=== PATIENT | female | born 1995 | race Caucasian/White ===

== ENCOUNTER 2018-02-07 18:54 | Emergency (ER) | payer BC ==
[2018-02-07] MEDS ORDERED: 0.9 % SODIUM CHLORIDE 1,000 ML BAG IV ONE (19:33)
[2018-02-07] MEDS ORDERED: ONDANSETRON HCL IV 4 MG/2 ML VIAL IVP ONE (19:34)
--- NOTE | 2018-02-07 19:34 | Emergency Department Record ---
History of Present Illness - General Chief complaint: Nausea, Vomiting, Diarrhea Stated complaint: VOMITTING, DIARREAH Time Seen by Provider: 02/07/18 19:25 Source: Patient Mode of Arrival: Ambulatory - History of Present Illness Initial comments: Patient states that she began having nausea and vomited around 2100 last evening with diarrhea times 1. She now has vomited more than 5 times, less than 10. She denies fevers, but has chills, and abdominal pain around her umbilicus. She is [id number] 2-3 weeks ago on BCP. Onset/Timin -: Days(s) Description of Vomiting: Watery Radiation: LUQ, RUQ, LLQ, RLQ Severity: Moderate Severity scale (1-10): 6 Quality: Aching, Cramping Consistency: Constant, Intermittent Associated Symptoms: Nausea/vomiting - Related Data Previous Rx's Medication Instructions Recorded Ondansetron [Zofran Odt] 4 mg PO Q8H #7 tab.rapdis 02/07/18 Allergies Allergy/AdvReac Type Severity Reaction Status Date / Time poison anai extract Allergy Severe SWELLING Verified 02/07/18 19:04 (GENERAL) venom-honey bee Allergy Severe SWELLING Verified 02/07/18 19:04 SEASONAL ALLERGIES Allergy Mild CONGESTION Uncoded 02/07/18 19:04 Travel Screening - Travel/Exposure Within Last 30 Days Have you traveled within the last 30 days?: No - Travel/Exposure Within Last Year Have you traveled outside the [place] in the last year?: No - Additonal Travel Details Have you been exposed to anyone with a communicable illness?: No - Travel Symptoms Symptom Screening: None Review of Systems Reviewed: No additional complaints except as noted below Constitutional: Reports: As per HPI. Denies: Chills, Fever, Malaise, Night sweats, Weakness, Weight change Eyes: Reports: As per HPI. Denies: Eye discharge, Eye pain, Photophobia, Vision change ENT: Reports: As per HPI. Denies: Congestion, Dental pain, Ear pain, Epistaxis , Hearing loss, Throat pain Respiratory: Reports: As per HPI. Denies: Cough, Dyspnea, Hemoptysis, Stridor, Wheezes Cardiovascular: Reports: As per HPI. Denies: Arrhythmia, Chest pain, Dyspnea on exertion, Edema, Murmurs, Orthopnea, Palpitations, Paroxysmal nocturnal dyspnea, Rheumatic Fever, Syncope Endocrine: Reports: As per HPI. Denies: Fatigue, Heat or cold intolerance, Polydipsia, Polyuria Gastrointestinal: Reports: As per HPI. Denies: Abdominal pain, Constipation, Diarrhea, Hematemesis, Hematochezia, Melena, Nausea, Vomiting Genitourinary: Reports: As per HPI. Denies: Abnormal menses, Discharge, Dyspareunia, Dysuria, Frequency, Hematuria, Incontinence, Retention, Urgency Musculoskeletal: Reports: As per HPI. Denies: Arthralgia, Back pain, Gout, Joint swelling, Myalgia, Neck pain Skin: Reports: As per HPI. Denies: Bruising, Change in color, Change in hair/ nails, Lesions, Pruritus, Rash Neurological: Reports: As per HPI. Denies: Abnormal gait, Confusion, Headache, Numbness, Paresthesias, Seizure, Tingling, Tremors, Vertigo, Weakness Psychiatric: Reports: As per HPI. Denies: Anxiety, Auditory hallucinations, Depression, Homicidal thoughts, Suicidal thoughts, Visual hallucinations Hematological/Lymphatic: Reports: As per HPI. Denies: Anemia, Blood Clots, Easy bleeding, Easy bruising, Swollen glands Past Medical History - SOCIAL HISTORY Smoking Status: Never smoker Alcohol Use: None Drug Use: None - RESPIRATORY Hx Respiratory Disorders: No - CARDIOVASCULAR Hx Cardio Disorders: No - NEURO Hx Neuro Disorders: No - GI Hx GI Disorders: No - Hx Genitourinary Disorders: No - ENDOCRINE Hx Endocrine Disorders: No - MUSCULOSKELETAL Hx Musculoskeletal Disorders: No - PSYCH Hx Psych Problems: Yes Hx Depression: Yes Hx Suicide Attempt: Yes - HEMATOLOGY/ONCOLOGY Hx Hematology/Oncology Disorders: No Family Medical History Any Significant Family History?: Yes Hx Depression: Father *Depression Comment: FATHER COMMITTED SUICIDE Physical Exam - General General Appearance: Alert, Oriented x3, Cooperative, No acute distress - Head Head exam: Normal inspection - Eye Eye exam: Normal appearance, PERRL, EOMI. negative: Nystagmus Pupils: Normal accommodation - ENT ENT exam: Normal exam, Mucous membranes moist, Normal external ear exam, Normal orophraynx, TM's normal bilaterally Ear exam: Normal external inspection. negative: External canal tenderness Nasal Exam: Normal inspection. negative: Discharge, Sinus tenderness Mouth exam: Normal external inspection, Tongue normal Teeth exam: Normal inspection. negative: Dental caries Throat exam: Normal inspection. negative: Tonsillar erythema, Tonsillar exudate - Neck Neck exam: Normal inspection, Full ROM. negative: Lymphadenopathy, Meningismus , Tenderness - Respiratory Respiratory exam: Normal lung sounds bilaterally. negative: Respiratory distress - Cardiovascular Cardiovascular Exam: Normal rhythm, Normal heart sounds, Tachycardia - GI/Abdominal GI/Abdominal exam: Soft, Normal bowel sounds, Tenderness (periumbilical diffuse tenderness). negative: Distended, Rebound, Rigid - Rectal Rectal exam: Deferred - exam: Deferred - Extremities Extremities exam: Normal inspection, Full ROM, Normal capillary refill. negative: Calf tenderness, Pedal edema, Tenderness - Back Back exam: Reports: Normal inspection, Full ROM. Denies: Muscle spasm, Rash noted, Tenderness - Neurological Neurological exam: Alert, CN II-XII intact, Normal gait, Oriented X3, Reflexes normal. negative: Motor sensory deficit - Psychiatric Psychiatric exam: Normal affect, Normal mood - Skin Skin exam: Dry, Intact, Normal color, Warm Course Vital Signs 02/07/18 18:57 Temperature 97.8 F Pulse Rate 113 H Respiratory 18 Rate Blood Pressure 111/77 Pulse Ox 97 - Reevaluation(s) Reevaluation #1: Nausea has improved but repeat abdominal exam shows tenderness now has moved to Mcburney's point in RLQ Will order CT scan for appy study. 02/07/18 21:15 Reevaluation #2: CT scan negative for appendicitis as visualized appendix appears normal. Will DC patient home. 02/08/18 01:25 Medical Decision Making - Management Options MDM Management: No Additional Work-up Planned - Data Complexity MDM Data: Labs Ordered and/or Reviewed, X-Ray Ordered and/or Reviewed (CT Scan Abd/Pelvis: Normal appendix, no acute abnormality per radiologist.) - Lab Data Result diagrams: 02/07/18 19:45 02/07/18 19:45 Disposition Disposition: Discharge Clinical Impression: Nausea & vomiting Qualifiers: Vomiting type: unspecified Vomiting Intractability: non-intractable Qualified Code(s): R11.2 - Nausea with vomiting, unspecified Disposition: Home, Self-Care Condition: (1) Good Instructions: Dehydration (ED), Acute Nausea and Vomiting (ED) Additional Instructions: Push fluids. clear liquids only until no nausea or vomiting. Zofran as directed as needed for nausea. Follow up with Dr. Reid as needed. Prescriptions: Ondansetron [Zofran Odt] 4 mg PO Q8H #7 tab.rapdis Forms: Patient Portal Access Quality - Quality Measures Quality Measures: N/A - Blood Pressure Screening Does Patient Have Any of the Following: No Blood Pressure Classification: Normal BP Reading Systolic Measurement: 111 Diastolic Measurement: 77 Screening for High Blood Pressure: < Normal BP, F/U Not Required > [G8783]
[2018-02-07 19:47] LABS: URINE APPEARANCE CLEAR; URINE BILIRUBIN NEGATIVE (NEGATIVE); URINE BLOOD TRACE-I (NEGATIVE); URINE COLOR YELLOW; URINE GLUCOSE (UA) NEGATIVE (NEGATIVE); URINE KETONE 15 mg/dL (NEGATIVE); URINE LEUKOCYTE ESTERASE NEGATIVE (NEGATIVE); URINE NITRITE NEGATIVE (NEGATIVE); URINE PROTEIN NEGATIVE (NEGATIVE); URINE UROBILINOGEN 0.2 E.U./dL (0.20 - 1.00)
[2018-02-07 19:50] LABS: HCG,QUALITATIVE URINE NEGATIVE (NEGATIVE)
[2018-02-07 19:54] LABS: HEMATOCRIT 40.5 % (35.0-47.0); HEMOGLOBIN 13.4 gm/dl (11.6-16.0); MEAN CELL VOLUME 85.8 fl (81-97); MEAN CORPUSCULAR HEMOGLOBIN 28.4 pg (27-33); MEAN CORPUSCULAR HGB CONC 33.1 g/dl (32-36); MEAN PLATELET VOLUME 10.4 fl (7.4-10.4); PLATELET COUNT 214 K/uL (130-400); RED BLOOD COUNT 4.72 M/uL (3.80-5.40); RED CELL DISTRIBUTION WIDTH 12.7 % (11.5-14.5); WHITE BLOOD COUNT W/O DIFF 6.1 K/uL (4.2-12.2)
[2018-02-07 20:04] LABS: BLOOD UREA NITROGEN 8 mg/dL (6-20); CREATININE 0.6 mg/dL (0.5-0.9); EST GLOMERULAR FILTRATION RATE > 60 mL/min
[2018-02-07 20:07] LABS: GLUCOSE,RANDOM 90 mg/dL (74-109)
[2018-02-07 20:09] LABS: ALB/GLOB RATIO 1.4 (1.1-1.8); ALBUMIN 4.6 g/dL (4.0-5.0); ALKALINE PHOSPHATASE 56 U/L (35-104); ALT/SGPT 16 U/L (<33); AST/SGOT 14 U/L (10.0-35.0)
[2018-02-07 20:10] LABS: LIPASE 31 U/L (13-60)
[2018-02-07 20:14] LABS: BILIRUBIN,DIRECT < 0.2 mg/dL (0-0.3)
[2018-02-07 20:19] LABS: PLATELET ESTIMATE NORMAL (NORMAL)
[2018-02-07] MEDS ORDERED: ONDANSETRON 4 MG ODT TABLET SL ONE (22:12)
--- NOTE | 2018-02-08 13:28 | CT SCAN REPORT ---
EXAM: CT SCAN OF THE ABDOMEN AND PELVIS WITH CONTRAST HISTORY: STOMACH PAIN AND RIGHT LOWER QUADRANT ABDOMINAL PAIN SINCE YESTERDAY. POSSIBLE APPENDICITIS. TECHNIQUE: Standard CT imaging of the abdomen and pelvis was performed with intravenous contrast. 100 ml of Omnipaque 300 were administered. Comparison: None. FINDINGS: The lung bases are clear. The liver, gallbladder, biliary tree, pancreas, spleen, and adrenal glands are normal. There is duplication of the right renal collecting system. Two ureters are visualized down to the mid level. Only a single ureter is visualized distally. The kidneys and ureters are otherwise unremarkable. The aorta is normal in caliber. There is no retroperitoneal lymphadenopathy. The large and small bowel loops appear within normal limits. The appendix is visualized and is normal. There is no evidence for acute appendicitis. There is trace fluid within the pelvis which is likely physiologic. The uterus and adnexa appear normal. The urinary bladder is unremarkable. There are no acute osseous abnormalities. IMPRESSION: 1. NO ACUTE INTRAABDOMINAL PATHOLOGY. THE APPENDIX IS NORMAL. 2. TRACE FLUID WITHIN THE PELVIS WHICH IS LIKELY PHYSIOLOGIC. JOB NUMBER: [id number] [facility]
== END 2018-02-07 22:29 | disposition home or self-care (01) ==
LOC: ER 18:54
DX: R11.2 Nausea with vomiting, unspecified (principal); R19.7 Diarrhea, unspecified; R10.31 Right lower quadrant pain
CPT/HCPCS: 74177; 80053; 80076; 81003; 81025; 83690; 85027; 96361; 96374; 99284; J2405; J7030